=== PATIENT | female | born 1950 | race Caucasian/White ===

== ENCOUNTER → 2021-02-28 | Emergency (ER) | payer MEDICARE, OTHER ==
[~2021-02-28] VITALS: Ht 157.5 cm; Wt 59.0 kg
[~2021-02-28] MED LIST: ASPI81CH43 PO; LISI-716; MET50T PO; OMEP20TA30 PO
[2021-02-28 14:24] VITALS: BP 142/84
[2021-02-28 15:24] LABS: Basophils # (auto) 0.1 10 ^3/uL (0-0.2); Basophils % (auto) 0.6 % (0.0-2.0); Eosinophils # (auto) 0.2 10 ^3/uL (0-0.8); Eosinophils % (auto) 2.2 % (0.0-7.0); Hematocrit 39.9 % (36.0-46.0); Hemoglobin 13.6 g/dL (12.2-16.2); Lymphocytes # (auto) 1.4 10 ^3/uL (0.4-5.4); Lymphocytes % (auto) 12.4 % (10.0-50.0); Mean Corpuscular Hemoglobin 29.8 pg (28.0-32.0); Mean Corpuscular Hgb Conc. 34.2 g/dL (32.0-36.0); Mean Corpuscular Volume 87.4 fL (80.0-100.0); Monocytes # (auto) 0.7 10 ^3/uL (0-1.3); Monocytes % (auto) 6.3 % (0.0-12.0); Neutrophils # (auto) 8.6 10 ^3/uL (1.6-8.6); Neutrophils % (auto) 78.5 % (37.0-80.0); Nucleated Red Blood Cells % 0.1 %; Red Blood Cells 4.56 10^6/uL (4.0-5.20); Red Cell Distribution Width 13.2 % (11.8-14.3); White Blood Cell 10.9 10^3/uL (4.4-10.8)
[2021-02-28 15:47] LABS: Albumin 3.8 g/dL (3.4-5.0); Calcium 9.8 mg/dL (8.5-10.1); Magnesium 2.5 mg/dL (1.6-2.6); Potassium 4.2 mmol/L (3.5-5.1)
[2021-02-28 15:49] LABS: BUN/Creatinine Ratio 14.2
[2021-02-28 16:02] LABS: Bilirubin, Total 0.3 mg/dL (0.2-1.0); Total Protein 7.9 g/dL (6.4-8.2)
[2021-02-28 18:37] LABS: Urine Bacteria NONE SEEN /hpf (None Seen); Urine Blood Negative /uL (Negative); Urine Hyaline Cast FEW /lpf (0 - 2); Urine Mucus FEW (None Seen); Urine Specific Gravity 1.027 (1.001-1.035); Urine WBC 46 /hpf (0 - 5)
== END | disposition left against medical advice (07) ==
LOC: EDUNIT# 14:05 → EDBD 14:05 → ER 14:05
DX: U07.1 COVID-19 (principal); R55 Syncope and collapse; R07.89 Other chest pain
CPT/HCPCS: 36415; 70450; 71045; 80053; 81001; 83735; 84484; 85025; 87426; 93005

== ENCOUNTER 2024-07-18 12:26 | Emergency (ER) | payer OTHER, MEDICAID ==
[~2024-07-18] VITALS: Ht 162.6 cm; Wt 61.3 kg
[~2024-07-18 12:26] MED LIST changes: -LISI-716; +LISI10TA34
[2024-07-18] MEDS: ONDANSETRON HCL 4 MG/2 ML VIAL IV ONE (12:30)
--- NOTE | 2024-07-18 12:30 | ECG ---
[facility] Test Date: 2024-07-18 Test Time: 12:24:33 Pat Name: THERESA MCGEE Department: ED Room: Gender: F Injection Molding Technician: IRAJ : 1950 Requested By: KARUNA KELLER Order Number: [id number] Reading MD: Schuyler Macias Measurements Intervals [place] Rate: 72 P: 78 LA: 155 QRS: 68 QRSD: 98 T: 61 QT: 391 QTc: 428 Interpretive Statements Sinus rhythm Electronically Signed On 07-18-2024 22:36:58 PDT by Schuyler Macias Please click the below link to view image of tracing.
--- NOTE | 2024-07-18 12:35 | ED.PDOC ---
HPI (NEURO) HPI Comments 75y F who presents to the ED via EMS for chief complaint of dizziness. Pt states she got up this AM at 0530 to use restroom and states she started to have vomiting episode while on way to use restroom. Pt states she progressively started to get dizziness with associated another vomiting episode and associated L sided numbness and decided to call EMS. EMS arrived on scene and noted stable vitals with Accu check of 126 and noted ax0x4 and brought to the ED without any interventions performed. Pt in the ED, states she is having associated chills but otherwise denies any other symptoms at this time. Chief Complaint: Dizziness Time Seen by MD: 12:31 Primary Care Provider: MARIE Meyer Notes: Planning Lead Notes Information Source: Patient, Emergency Med Personnel Mode of Arrival: EMS Brought in by: EMS Severity: Moderate Dizziness/Weakness Severity: Does not affect activitie Headache Severity: None Timing: Hours Duration: Since onset Prehospital treatment: None Weakness Location: (L) Sided Numbness Location: (L) Sided Onset: At rest Circumstances: Spontaneous Symptoms: Weakness History of: Hypertension Modifying factors: Nothing Associated Signs and Symptoms: Nausea, Vomiting, Weakness Past Medical History PAST MEDICAL HISTORY: CAD, High Lipids, HTN Surgical History: Appendectomy, CABG, Tonsillectomy COMPLIANCE TESTING ANALYST History: No Pertinent COMPLIANCE TESTING ANALYST History Family History Family History: No family hx of Heart luis Social History Smoker: Non-Smoker, Quit Greater Than 1 Year Alcohol: Rarely Drugs: Denies Drug Use Lives In: Home Constitutional: reports: malaise, weakness; denies: chills, diaphoresis, fatigue, fever, sweats, others EENTM: denies: blurred vision, double vision, ear bleeding, ear discharge, ear drainage, ear pain, ear ringing, eye pain, eye redness, hearing loss, mouth pain, mouth swelling, nasal discharge, nose bleeding, nose congestion, nose pain, photophobia, tearing, throat pain, throat swelling, voice changes, others Respiratory: denies: cough, hemoptysis, orthopnea, SOB at rest, shortness of breath, SOB with excertion, stridor, wheezing, others Cardiovascular: denies: chest pain, dizzy spells, diaphoresis, Dyspnea on exertion, edema, irregular heart beat, left arm pain, lightheadedness, palpitations, PND, syncope, others Gastrointestinal: reports: nausea, vomiting; denies: abdomen distended, abdominal pain, blood streaked bowels, constipated, diarrhea, dysphagia, difficulty swallowing, hematemesis, melena, poor appetite, poor fluid intake, rectal bleeding, rectal pain, others Genitourinary: denies: abnormal vagina bleeding, burning, dyspareunia, dysuria, flank pain, frequency, hematuria, incontinence, pain, , vagina discharge, urgency, others Neurological: reports: dizziness; denies: fainting, headache, left sided numbness, left sided weakness, numbness, paresthesia, pre-existing deficit, right sided numbness, right sided weakness, seizure, speech problems, tingling, tremors, weakness, others Musculoskeletal: denies: back pain, gout, joint pain, joint swelling, muscle pain, muscle stiffness, neck pain, others Integumetry: denies: bruises, change in color, change in hair/nails, dryness, laceration, lesions, lumps, rash, wounds, others Allergic/Immunocompromised: denies: Difficulty Healing, Frequent Infections, Hives, Itching, others Hematologic/Lymphatic: denies: anemia, blood clots, easy bleeding, easy bruising, swollen glands, others Endocrine: denies: excessive hunger, excessive sweating, excessive thirst, excessive urination, flushing, intolerance to cold, intolerance to heat, unexplained weight gain, unexplained weight loss, others Psychiatric: denies: anxiety, bipolar disorder, depression, hopeless, panic disorder, schizophrenia, sleepless, suicidal, others All Other Systems: Reviewed and Negative Physical Exam General Appearance: No Apparent Distress HEENT: Normal ENT Inspection, Pharynx Normal, TMs Normal Neck: Full Range of Motion, Non-Tender, Normal, Normal Inspection Respiratory: Chest Non-Tender, Lungs Clear, No Accessory Muscle Use, No Res piratory Distress, Normal Breath Sounds Cardiovascular: No Edema, No JVD, No Murmur, No Gallop, Normal Peripheral Pulses, Regular Rate/Rhythm Breast Exam: Deferred Gastrointestinal: No Organomegaly, Non Tender, No Pulsatile Mass, Normal Bowel Sounds, Soft Genitalia: Deferred Pelvic: Deferred Rectal: Deferred Extremities: No calf tenderness, Normal capillary refill, Normal inspection, Normal range of motion, Non-tender, No pedal edema Musculoskeletal : Apperance: Normal Neurologic: Alert, inspector ball points II-XII nml as Tested, No Motor Deficits, Normal Affect, Normal Mood, No Sensory Deficits Cerebellar Function: Normal Reflexes: Normal Skin: Dry, Normal Color, Warm Lymphatic: No Adenopathy EKG EKG : Pulse Rate (adult): 72 Clancy: Normal Cardiac Rhythm: NSR Block: None Hypertrophy: None ST: Normal Was a procedure done? Was a procedure done?: No Differential Diagnosis (SZ) General Weakness: Anemia, Dehydration, Dysrhythmia, Electrolyte imbalance, Encephalopathy, Hypotension, Hypovolemia, Pulmonary embolus, Vertigo: central, Vertigo: peripheral, Other (UTI, PNA viral syndrome, ) X-Ray, Labs, Meds, VS Vital Signs Date Time Temp Pulse Resp B/P (MAP) Pulse Ox O2 Delivery O2 Flow Rate FiO2 07/18/24 13:46 73 17 97 Room Air 07/18/24 13:46 98.7 73 16 129/67 (87) 97 98.7 07/18/24 12:35 72 07/18/24 12:26 98.1 80 20 126/76 (93) 97 98.1 07/18/24 12:26 72 Lab Test 07/18/24 13:53 07/18/24 13:00 Range/Units Urine Color Yellow Yellow Urine Clarity Clear Clear Urine pH 5.5 5.0-9.0 Urine Specific [place] 1.032 1.001-1.035 Urine Protein 1+ H Negative Urine Ketones Negative Negative Urine Blood Trace H Negative /uL Urine Nitrite Negative Negative Urine Bilirubin Negative Negative Urine Urobilinogen Normal Negative mg/dL Urine Leukocyte Esterase 2+ Negative /uL Urine RBC 8 0 - 4 /hpf Urine Microscopic WBC 18 H 0-5 /HPF Urine Squamous Epithelial Cells Few <5 /hpf Urine Bacteria Few H None Seen /hpf Urine Mucus Few None Seen Urine Glucose Normal Normal mg/dL White Blood Count 6.7 4.4-10.8 10^3/uL Red Blood Count 5.43 H 4.0-5.20 10^6/uL Hemoglobin 16.0 12.2-16.2 g/dL Hematocrit 47.4 H 36.0-46.0 % Mean Corpuscular Volume 87.3 80.0-100.0 fL Mean Corpuscular Hemoglobin 29.5 28.0-32.0 pg Mean Corpuscular Hemoglobin Concent 33.8 32.0-36.0 g/dL Red Cell Distribution Width 13.7 11.8-14.3 % Platelet Count 364 140-450 10^3/uL Mean Platelet Volume 7.8 6.9-10.8 fL Neutrophils (%) (Auto) 64.7 37.0-80.0 % Lymphocytes (%) (Auto) 21.7 10.0-50.0 % Monocytes (%) (Auto) 7.4 0.0-12.0 % Eosinophils (%) (Auto) 5.5 0.0-7.0 % Basophils (%) (Auto) 0.7 0.0-2.0 % Neutrophils # (Auto) 4.3 1.6-8.6 10 ^3/uL Lymphocytes # (Auto) 1.5 0.4-5.4 10 ^3/uL Monocytes # (Auto) 0.5 0-1.3 10 ^3/uL Eosinophils # (Auto) 0.4 0-0.8 10 ^3/uL Basophils # (Auto) 0 0-0.2 10 ^3/uL Nucleated Red Blood Cells 0.0 % Sodium Level 142 136-145 mmol/L Potassium Level 4.5 3.5-5.1 mmol/L Chloride Level 109 H 98-107 mmol/L Carbon Dioxide Level 23 20-31 mmol/L Anion Gap 10 5-15 Blood Urea Nitrogen 17 9-23 mg/dL Creatinine 0.99 0.550-1.02 mg/dL Glomerular Filtration Rate Calc 60 >90 mL/min BUN/Creatinine Ratio 17.2 10.0-20.0 Serum Glucose 132 H 74-106 mg/dL Calcium Level 10.8 H 8.7-10.4 mg/dL Current Medications Medications (Trade) Dose Ordered Sig/Ashley Route Start Time Stop Time Status Last Admin Ondansetron HCl (Zofran) 4 mg ONCE ONCE IV 07/18/24 12:30 07/18/24 12:31 DC 07/18/24 12:30 Ceftriaxone Sodium 50 ml @ 100 mls/hr ONCE ONCE IV 07/18/24 15:30 07/18/24 15:59 DC 07/18/24 15:32 The CAT scan of the head is negative The patient does have a UTI and was given Rocephin IV piggyback The patient was given Zofran 4 mg for the nausea The patient's CBC and chemistry panel are within normal limits At this time, we did contact the [facility] physician He stated that there is no neurologist on-call so we were attempting to transfer the patient. Initially [facility] is on saturation We then contacted the [facility] hospitalist to see if we can transferred to [facility] if they have a neurologist on-call At this time, the patient has decided to sign out AMA We did explain to her that she may need an MRI but the patient states that she is leaving Images Reviewed?: Images reviewed and evaluated by me Time of 1ST Reevaluation: 13:05 Reevaluation 1ST: Unchanged Patient Education/Counseling: Diagnosis, Treatment, Prognosis Family Education/Counseling: No Family Present Departure 1 Departure Time of Disposition: 18:33 Impression: Primary Impression: Autonomic dysfunction Additional Impression: UTI (urinary tract infection) Qualified Codes: N30.00 - Acute cystitis without hematuria Disposition: LEFT AGAINST MEDICAL ADVICE Condition: Fair Critical Care Note Critical Care Time?: No Stability Stability form required: Yes Unstable for transfer: Telemetry monitoring (Telemetry monitoring required), ED Physician Assesment (Clinical assesment) Heart Score Heart Score: Heart Score Response (Comments) Value History Slightly Suspicious 0 EKG Normal 0 Age >65 2 Risk Factors 1 or 2 risk factors 1 Troponin Normal limit 0 Total 3 I personally scribed for KARUNA KELLER MD ([email or web address]) on 07/18/24 at 12:35. Electronically submitted by Yash Coker ([email or web address]). KARUNA KELLER MD Jul 18, 2024 12:35
[2024-07-18 13:12] LABS: Basophils # (auto) 0 10 ^3/uL (0-0.2); Basophils % (auto) 0.7 % (0.0-2.0); Eosinophils # (auto) 0.4 10 ^3/uL (0-0.8); Eosinophils % (auto) 5.5 % (0.0-7.0); Hematocrit 47.4 % (36.0-46.0); Lymphocytes # (auto) 1.5 10 ^3/uL (0.4-5.4); Lymphocytes % (auto) 21.7 % (10.0-50.0); Mean Corpuscular Hemoglobin 29.5 pg (28.0-32.0); Mean Corpuscular Hgb Conc. 33.8 g/dL (32.0-36.0); Mean Corpuscular Volume 87.3 fL (80.0-100.0); Monocytes # (auto) 0.5 10 ^3/uL (0-1.3); Monocytes % (auto) 7.4 % (0.0-12.0); Neutrophils # (auto) 4.3 10 ^3/uL (1.6-8.6); Neutrophils % (auto) 64.7 % (37.0-80.0); Platelet Count (auto) 364 10^3/uL (140-450); Red Blood Cells 5.43 10^6/uL (4.0-5.20); Red Cell Distribution Width 13.7 % (11.8-14.3); White Blood Cell 6.7 10^3/uL (4.4-10.8)
[2024-07-18 13:18] LABS: Potassium 4.5 mmol/L (3.5-5.1); Sodium 142 mmol/L (136-145)
[2024-07-18 13:19] LABS: Anion Gap 10 (5-15); Carbon Dioxide 23 mmol/L (20-31)
[2024-07-18 13:21] LABS: Calcium 10.8 mg/dL (8.7-10.4); Chloride 109 mmol/L (98-107)
[2024-07-18 13:24] LABS: BUN/Creatinine Ratio 17.2 (10.0-20.0); Blood Urea Nitrogen 17 mg/dL (9-23)
[2024-07-18 13:37] LABS: Glucose 132 mg/dL (74-106)
[2024-07-18 13:46] VITALS: BP 129/67; PULSE 73; RESP 17; TEMP 98.7; O2SAT 97
--- NOTE | 2024-07-18 14:28 | DVH ---
CLINICAL INFORMATION: 74 years old, Female; dizziness. TECHNIQUE: Axial imaging was obtained through the brain without contrast. Coronal and sagittal reform atted images were obtained, reviewed, and stored. Images were reviewed in brain and bone windows. Al l CT scans at this medical facility are performed using dose modulation techniques as appropriate to a performed exam including the following: Automated exposure control was utilized; adjustment of the MA and/or KV according to patient size; and use of iterative reconstruction technique. CTDIvol = 50.9 8 mGy DLP = 816.29 mGy-cm COMPARISON: HEAD WITHOUT CONTRAST on DOS: 02/28/21 FINDINGS: There is no acute intracranial hemorrhage. No mass effect or midline shift. Scattered areas of hypoattenuation are seen in the periventricular and subcortical white matter, which are nonspecif ic but most likely sequelae of small vessel ischemic disease. More focal small area of encephalomalac ia in the left frontal lobe. The ventricles and sulci are within normal limits in size for age. Basal cisterns are patent. The calvarium is unremarkable. Moderate mucosal thickening and areas of partia l opacification in the paranasal sinuses. There is complete opacification of the left frontal sinus a nd near complete opacification of the right frontal sinus. Postsurgical changes of prior sinus surger y. Mastoid air cells are clear. IMPRESSION: 1. No CT evidence of acute intracranial abnormality. 2. Paranasal sinusitis as detailed above. 3. Additional findings as described above.
[2024-07-18 15:09] LABS: Urine Bacteria FEW /hpf (None Seen); Urine Blood TRACE /uL (Negative); Urine Clarity Clear (Clear); Urine Color Yellow (Yellow); Urine Mucus FEW (None Seen); Urine Protein, UAD 1+ (Negative); Urine Specific Gravity 1.032 (1.001-1.035); Urine Squamous Epithelial Cell FEW /hpf (<5); Urine Urobilinogen Normal (Negative); Urine WBC 18 /HPF (0-5); Urine pH 5.5 (5.0-9.0)
[2024-07-18] MEDS: cefTRIAXone 1GM/50ML D5W 50 ML IV ONE (15:32)
[2024-07-18] MEDS ORDERED: NITR-87 PO (18:35)
== END 2024-07-18 18:35 | disposition left against medical advice (07) ==
LOC: EDBD 12:26 → ER 12:35
DX: G90.9 Disorder of the autonomic nervous system, unspecified (principal); N39.0 Urinary tract infection, site not specified; I25.10 Atherosclerotic heart disease of native coronary artery without angina pectoris; I10 Essential (primary) hypertension; Z90.49 Acquired absence of other specified parts of digestive tract; Z90.89 Acquired absence of other organs
CPT/HCPCS: 36415; 70450; 80048; 81001; 85025; 93005; 96365; 96375; 99285; J0696; J2405